=== PATIENT | female | born 1945 | race Caucasian/White ===

== ENCOUNTER 2024-04-04 09:28 | Emergency (ER) | payer MEDICARE ==
[~2024-04-04] VITALS: Ht 157.5 cm; Wt 100.7 kg
[~2024-04-04 09:28] MED LIST: ALPRAZOLAM0.5 MG PO; BABY ASPIRIN81 MG PO; CYMBALTA30 MG PO; FENOFIBRATE145 MG PO; HYZAAR 100-12.1 EACH PO; ISOSORBIDE MONO60 M1 PO; LEVOTHYROXINE75 MCG PO; NEURONTIN600 MG PO; NEXIUM40 MG PO; PLAVIX75 MG PO; REQUIP1 MG PO; TIZANIDINE HCL4 MG PO; ULTRAM50 MG PO; VERAPAMIL ER240 MG PO; ZETIA10 MG PO
[2024-04-04] MEDS ORDERED: COZAAR25 MG PO (10:32)
[2024-04-04] MEDS ORDERED: ATROVENT HFA12.9 GM INH (10:32)
[2024-04-04] MEDS ORDERED: PRAMIPEXOLE DIHY1 MG PO (10:32)
[2024-04-04] MEDS ORDERED: FLOMAX0.4 MG PO (10:32)
[2024-04-04] MEDS ORDERED: PERFOROMIS20 MCG/2 M (10:32)
[2024-04-04] MEDS ORDERED: MAGNESIUM OXID400 MG PO (10:32)
[2024-04-04] MEDS ORDERED: NITROGLYCERIN0.4 MG SL (10:32)
[2024-04-04] MEDS ORDERED: MUCINEX DM ER1 EACH PO (10:32)
[2024-04-04] MEDS ORDERED: XARELTO20 MG PO (10:32)
[2024-04-04] MEDS ORDERED: TORSEMIDE20 MG PO (10:32)
[2024-04-04] MEDS ORDERED: MONTELUKAST SOD10 MG PO (10:32)
[2024-04-04] MEDS ORDERED: HYDRALAZINE HCL25 MG PO (10:32)
[2024-04-04] MEDS ORDERED: ALLOPURINOL100 MG PO (10:32)
[2024-04-04] MEDS ORDERED: K-DUR10 MEQ PO (10:32)
[2024-04-04] MEDS: TETANUS/DIPHTHERIA TOX ADULT 0.5 ML SYR IM ONE (10:47)
[2024-04-04] MEDS: ACETAMINOPHEN 325 MG TAB PO ONE ×2 (10:48→11:32)
[2024-04-04 12:39] VITALS: PULSE 58; RESP 18; TEMP 97.9
[2024-04-04] MEDS: BACITRACIN ZINC 0.9GM TP ONE (15:51)
[2024-04-04] MEDS ORDERED: ULTRAM 50MG50 MG PO (15:57)
[2024-04-04] MEDS ORDERED: DOXYCYCLINE HY100 MG PO (15:59)
[2024-04-04 16:15] VITALS: BP 127/61; PULSE 55; RESP 18; TEMP 98.3; O2SAT 98
== END 2024-04-04 16:15 | disposition home or self-care (01) ==
LOC: FSED 09:30
DX: S91.111A Laceration without foreign body of right great toe without damage to nail, initial encounter (principal); S30.0XXA Contusion of lower back and pelvis, initial encounter; S20.211A Contusion of right front wall of thorax, initial encounter; S40.011A Contusion of right shoulder, initial encounter; I25.810 Atherosclerosis of coronary artery bypass graft(s) without angina pectoris; I48.91 Unspecified atrial fibrillation; I25.2 Old myocardial infarction; I13.0 Hypertensive heart and chronic kidney disease with heart failure and stage 1 through stage 4 chronic kidney disease, or unspecified chronic kidney disease; N18.9 Chronic kidney disease, unspecified; I50.9 Heart failure, unspecified; J44.9 Chronic obstructive pulmonary disease, unspecified; G25.81 Restless legs syndrome; E03.9 Hypothyroidism, unspecified; W08.XXXA Fall from other furniture, initial encounter; Z23 Encounter for immunization; Z88.6 Allergy status to analgesic agent; Z88.1 Allergy status to other antibiotic agents; Z88.8 Allergy status to other drugs, medicaments and biological substances; Z11.52 Encounter for screening for COVID-19; Z91.048 Other nonmedicinal substance allergy status; Z79.02 Long term (current) use of antithrombotics/antiplatelets; Z79.899 Other long term (current) drug therapy; Z87.440 Personal history of urinary (tract) infections; Z86.2 Personal history of diseases of the blood and blood-forming organs and certain disorders involving the immune mechanism; Z86.718 Personal history of other venous thrombosis and embolism; Z95.1 Presence of aortocoronary bypass graft; Z95.5 Presence of coronary angioplasty implant and graft
CPT/HCPCS: 0223U; 12002; 71101; 72100; 73030; 73630; 90471; 90714; 96372; 99284

== ENCOUNTER 2024-04-14 08:13 | Emergency (ER) | payer MEDICARE ==
[~2024-04-14] VITALS: Ht 157.5 cm; Wt 98.9 kg
[2024-04-14 08:13] VITALS: PULSE 60; RESP 18; TEMP 97.1; O2SAT 98
[~2024-04-14 08:13] MED LIST changes: +ALLOPURINOL100 MG PO; +ATROVENT HFA12.9 GM INH; +COZAAR25 MG PO; +DOXYCYCLINE HY100 MG PO; +FLOMAX0.4 MG PO; +HYDRALAZINE HCL25 MG PO; +K-DUR10 MEQ PO; +MAGNESIUM OXID400 MG PO; +MONTELUKAST SOD10 MG PO; +MUCINEX DM ER1 EACH PO; +NITROGLYCERIN0.4 MG SL; +PERFOROMIS20 MCG/2 M; +PRAMIPEXOLE DIHY1 MG PO; +TORSEMIDE20 MG PO; +ULTRAM 50MG50 MG PO; +XARELTO20 MG PO
== END 2024-04-14 08:50 | disposition home or self-care (01) ==
LOC: FSED 08:18
DX: Z48.02 Encounter for removal of sutures (principal); I10 Essential (primary) hypertension; J44.9 Chronic obstructive pulmonary disease, unspecified; I50.9 Heart failure, unspecified; E03.9 Hypothyroidism, unspecified; I25.10 Atherosclerotic heart disease of native coronary artery without angina pectoris; D64.9 Anemia, unspecified; G47.30 Sleep apnea, unspecified; Z86.718 Personal history of other venous thrombosis and embolism
CPT/HCPCS: 99283; S0630

== ENCOUNTER 2024-04-19 15:47 | Emergency (ER) | payer MEDICARE ==
[~2024-04-19] VITALS: Ht 157.5 cm; Wt 98.9 kg
[2024-04-19 15:53] VITALS: PULSE 76; RESP 22; TEMP 98.3; O2SAT 99
== END 2024-04-19 16:35 | disposition home or self-care (01) ==
LOC: FSED 15:52
DX: Z48.01 Encounter for change or removal of surgical wound dressing (principal); L25.9 Unspecified contact dermatitis, unspecified cause; I10 Essential (primary) hypertension; J44.9 Chronic obstructive pulmonary disease, unspecified; I50.9 Heart failure, unspecified; I48.91 Unspecified atrial fibrillation; E03.9 Hypothyroidism, unspecified; I25.10 Atherosclerotic heart disease of native coronary artery without angina pectoris; D64.9 Anemia, unspecified; G47.30 Sleep apnea, unspecified; J45.909 Unspecified asthma, uncomplicated; G25.81 Restless legs syndrome; Z86.718 Personal history of other venous thrombosis and embolism; Z95.1 Presence of aortocoronary bypass graft; Z95.810 Presence of automatic (implantable) cardiac defibrillator
CPT/HCPCS: 99282

== ENCOUNTER 2024-05-12 21:58 | Emergency (ER) | payer MEDICARE ==
[~2024-05-12] VITALS: Ht 157.5 cm; Wt 98.9 kg
[2024-05-12 23:00] VITALS: PULSE 64; RESP 22; TEMP 98.1
[2024-05-13 02:18] VITALS: BP 144/65; PULSE 68; RESP 19; TEMP 98.1; O2SAT 97
== END 2024-05-13 02:45 | disposition home or self-care (01) ==
LOC: FSED 22:16
DX: M79.622 Pain in left upper arm (principal); I80.8 Phlebitis and thrombophlebitis of other sites; I50.9 Heart failure, unspecified; J44.9 Chronic obstructive pulmonary disease, unspecified; I10 Essential (primary) hypertension; E78.5 Hyperlipidemia, unspecified; I48.91 Unspecified atrial fibrillation; D68.9 Coagulation defect, unspecified; Z99.81 Dependence on supplemental oxygen; E03.9 Hypothyroidism, unspecified; I25.10 Atherosclerotic heart disease of native coronary artery without angina pectoris; D64.9 Anemia, unspecified; G47.30 Sleep apnea, unspecified; M54.9 Dorsalgia, unspecified; G89.29 Other chronic pain; Z95.810 Presence of automatic (implantable) cardiac defibrillator; Z95.1 Presence of aortocoronary bypass graft
CPT/HCPCS: 93971; 99284

== ENCOUNTER 2024-09-30 21:35 | Emergency (ER) | payer MEDICARE ==
[~2024-09-30] VITALS: Ht 157.5 cm; Wt 100.7 kg
[2024-09-30] MEDS ORDERED: ULTRAM 50MG50 MG PO (23:09)
[2024-09-30 23:14] VITALS: PULSE 66; RESP 18; TEMP 98
[2024-09-30 23:16] VITALS: BP 129/83; PULSE 66; RESP 18; TEMP 98; O2SAT 95
== END 2024-09-30 23:19 | disposition home or self-care (01) ==
LOC: FSED 21:42
DX: S80.01XA Contusion of right knee, initial encounter (principal); W01.0XXA Fall on same level from slipping, tripping and stumbling without subsequent striking against object, initial encounter; Y93.01 Activity, walking, marching and hiking; Y92.89 Other specified places as the place of occurrence of the external cause; I12.9 Hypertensive chronic kidney disease with stage 1 through stage 4 chronic kidney disease, or unspecified chronic kidney disease; N18.9 Chronic kidney disease, unspecified; J44.9 Chronic obstructive pulmonary disease, unspecified; I50.9 Heart failure, unspecified; I48.91 Unspecified atrial fibrillation; E03.9 Hypothyroidism, unspecified; I25.10 Atherosclerotic heart disease of native coronary artery without angina pectoris; D64.9 Anemia, unspecified; M54.9 Dorsalgia, unspecified; G89.29 Other chronic pain; Z99.81 Dependence on supplemental oxygen; Z86.718 Personal history of other venous thrombosis and embolism; G25.81 Restless legs syndrome
CPT/HCPCS: 99283

== ENCOUNTER 2024-12-26 09:18 | Emergency (ER) | payer MEDICARE ==
[~2024-12-26] VITALS: Ht 157.5 cm; Wt 100.7 kg
[2024-12-26 09:28] VITALS: PULSE 69; RESP 18; TEMP 98.1
[2024-12-26] MEDS: ALBUTEROL/IPRATROPIUM 3 ML NEB NEB ONE (10:43)
[2024-12-26] MEDS: METHYLPREDNISOLONE SOD SUCC 125 MG/2ML VIAL IV ONE (10:43)
[2024-12-26 13:08] VITALS: BP 163/72; PULSE 63; RESP 24; O2SAT 96
== END 2024-12-26 13:05 | disposition home or self-care (01) ==
LOC: FSED 09:20
DX: R04.0 Epistaxis (principal); J44.9 Chronic obstructive pulmonary disease, unspecified; I10 Essential (primary) hypertension; I50.9 Heart failure, unspecified; I48.91 Unspecified atrial fibrillation; E78.5 Hyperlipidemia, unspecified; Z99.81 Dependence on supplemental oxygen; G47.30 Sleep apnea, unspecified; Z95.810 Presence of automatic (implantable) cardiac defibrillator; Z95.5 Presence of coronary angioplasty implant and graft
CPT/HCPCS: 71045; 80048; 84484; 85025; 93005; 99284; J0456; J2919; J7050